=== PATIENT | female | born 1950 ===

== ENCOUNTER → 2017-11-21 | Outpatient (CLI) | payer OTHER | END | disposition home or self-care (01) | LOC: EDBD 18:26 → LAB 18:26 | DX: C50.412 Malignant neoplasm of upper-outer quadrant of left female breast (principal); D72.818 Other decreased white blood cell count; R97.0 Elevated carcinoembryonic antigen [CEA]; Z85.3 Personal history of malignant neoplasm of breast; D51.1 Vitamin B12 deficiency anemia due to selective vitamin B12 malabsorption with proteinuria; D51.3 Other dietary vitamin B12 deficiency anemia; M80.022S Age-related osteoporosis with current pathological fracture, left humerus, sequela; D69.49 Other primary thrombocytopenia; E78.5 Hyperlipidemia, unspecified; I10 Essential (primary) hypertension; E03.8 Other specified hypothyroidism; E08.65 Diabetes mellitus due to underlying condition with hyperglycemia ==